=== PATIENT | male | born 1975 | race Two or more races ===

== ENCOUNTER 2024-02-01 19:57 | Emergency (ER) | payer SELFPAY ==
[~2024-02-01] VITALS: Ht 165.1 cm; Wt 80.0 kg
[2024-02-01 20:46] VITALS: BP 9/75; PULSE 93; RESP 16; O2SAT 96
[2024-02-02] MEDS ORDERED: IBUP-1456 PO (00:56)
[2024-02-02] MEDS ORDERED: CEPH500C PO (00:56)
[2024-02-02] MEDS: TETANUS-DIPTH-ACEL PERTUSSIS 0.5ML SYR Tdap IM ONE (01:04)
== END 2024-02-02 01:25 | disposition home or self-care (01) ==
LOC: ER 19:57
DX: S61.215A Laceration without foreign body of left ring finger without damage to nail, initial encounter (principal); Z79.899 Other long term (current) drug therapy; W27.8XXA Contact with other nonpowered hand tool, initial encounter; Y93.89 Activity, other specified; Y92.89 Other specified places as the place of occurrence of the external cause; Y99.8 Other external cause status
CPT/HCPCS: 12001; 90471; 90715